=== PATIENT | female | born 1960 ===

== ENCOUNTER 2017-07-31 14:53 | Outpatient (CLI) | payer OTHER | END 2017-07-31 15:24 | disposition home or self-care (01) | LOC: MAMO-SONO 14:53 | DX: M81.0 Age-related osteoporosis without current pathological fracture (principal); N83.00 Follicular cyst of ovary, unspecified side; N80.9 Endometriosis, unspecified; D25.9 Leiomyoma of uterus, unspecified; E03.9 Hypothyroidism, unspecified; E04.1 Nontoxic single thyroid nodule; Z13.820 Encounter for screening for osteoporosis; Z12.31 Encounter for screening mammogram for malignant neoplasm of breast ==